=== PATIENT | female | born 1990 | race Caucasian/White ===

== ENCOUNTER 2016-10-31 11:20 | Emergency (ER) | payer OTHER ==
[~2016-10-31] VITALS: Ht 162.6 cm; Wt 102.3 kg
[2016-10-31 11:41] LABS: ADD MIUA? YES; BILIRUBIN NEGATIVE; BLOOD NEGATIVE; COLOR STRAW ((YELLOW)); GLUCOSE (STRIP) NEGATIVE; KETONES NEGATIVE; LEUKOCYTES NEGATIVE; NITRITE NEGATIVE; PROTEIN (STRIP) NEGATIVE; SPECIFIC GRAVITY 1.005 (1.000-1.030); UROBILINOGEN 0.2 MG/DL (0.2-1.0)
[2016-10-31 11:43] LABS: BACTERIA RARE /HPF; EPITHELIAL CELLS 1+ /HPF; MUCUS TRACE /LPF; RED BLOOD CELLS 0-5 /HPF (0-5); UCUL ADDED? NO; WHITE BLOOD CELLS 0-5 /HPF (0-5)
[2016-10-31 12:12] LABS: MCH 29.6 PG (29.0-34.0); MCHC 33.5 G/DL (30.0-36.0); MCV 88.5 FL (83-99); RBC DIS.WIDTH-CV 12.9 % (11.8-14.6); RBC DIS.WIDTH-SD 41.7 % (39-53); RED BLOOD COUNT 4.52 M/uL (3.80-5.20); WHITE BLOOD COUNT 6.5 K/uL (4.1-10.2)
[2016-10-31 12:37] LABS: CHLORIDE 105 mEq/L (99-109); SODIUM 139 mEq/L (136-147)
[2016-10-31 12:40] LABS: GLUCOSE 92 mg/dL (70-99)
[2016-10-31 12:41] LABS: ANION GAP 9 MEQ/L (2-14); TOTAL BILIRUBIN 0.3 mg/dL (0.0-1.0)
[2016-10-31 12:43] LABS: ALKALINE PHOSPHATASE 62 IU/L (3-129)
[2016-10-31 12:44] LABS: UREA NITROGEN (BUN) 8 mg/dL (9-23)
[2016-10-31 12:45] LABS: GFR ESTIMATE (CALCULATED) > 59 mL/min/
[2016-10-31 12:52] LABS: QUANTITATIVE HCG < 4.0 MIU/ML
[2016-10-31 12:58] LABS: MEAN PLAT.VOLUME 11.8 uM^3 (9.5-12.4); PLATELET COUNT 249 K/uL (156-360)
[2016-10-31] MEDS ORDERED: PERCOCET 5/31 TABLET PO (16:39)
[2016-10-31 17:15] VITALS: BP 116/83
== END 2016-10-31 17:17 | disposition home or self-care (01) ==
LOC: EME 11:20
DX: N83.202 Unspecified ovarian cyst, left side (principal); R10.30 Lower abdominal pain, unspecified; R19.4 Change in bowel habit; F17.200 Nicotine dependence, unspecified, uncomplicated
CPT/HCPCS: 76856; 80053; 81003; 84702; 85027; 99281; 99284

== ENCOUNTER 2016-11-26 09:32 | Emergency (ER) | payer OTHER ==
[~2016-11-26] VITALS: Ht 162.6 cm; Wt 60.7 kg
[~2016-11-26 09:32] MED LIST: PERCOCET 5/31 TABLET PO
[2016-11-26] MEDS ORDERED: NAPROSYN500 MG PO (11:05)
[2016-11-26 11:15] VITALS: BP 126/93
== END 2016-11-26 11:16 | disposition home or self-care (01) ==
LOC: EME 09:32
PROC: 3E0234Z Introduction of Serum, Toxoid and Vaccine into Muscle, Percutaneous Approach (ICD-10-PCS; principal; 2016-11-26)
DX: S60.221A Contusion of right hand, initial encounter (principal); S60.511A Abrasion of right hand, initial encounter; W23.0XXA Caught, crushed, jammed, or pinched between moving objects, initial encounter; F17.200 Nicotine dependence, unspecified, uncomplicated
CPT/HCPCS: 73130; 99281; 99284

== ENCOUNTER 2016-12-17 10:25 | Emergency (ER) | payer OTHER ==
[~2016-12-17] VITALS: Ht 162.6 cm; Wt 61.3 kg
[~2016-12-17 10:25] MED LIST changes: +NAPROSYN500 MG PO
[2016-12-17 10:32] VITALS: BP 124/81
[2016-12-17] MEDS ORDERED: ULTRAM50 MG PO (11:14)
== END 2016-12-17 11:43 | disposition home or self-care (01) ==
LOC: EME 10:25
DX: S83.91XA Sprain of unspecified site of right knee, initial encounter (principal); X58.XXXA Exposure to other specified factors, initial encounter; F17.200 Nicotine dependence, unspecified, uncomplicated
CPT/HCPCS: 73564; 99281; 99284

== ENCOUNTER 2017-03-10 13:05 | Emergency (ER) | payer OTHER ==
[~2017-03-10] VITALS: Ht 162.6 cm; Wt 65.5 kg
[~2017-03-10 13:05] MED LIST changes: +ULTRAM50 MG PO
[2017-03-10 14:05] LABS: ADD MIUA? YES; BILIRUBIN NEGATIVE; BLOOD NEGATIVE; COLOR YELLOW ((YELLOW)); GLUCOSE (STRIP) NEGATIVE; KETONES NEGATIVE; LEUKOCYTES NEGATIVE; NITRITE NEGATIVE; PROTEIN (STRIP) NEGATIVE; SPECIFIC GRAVITY 1.006 (1.000-1.030); UROBILINOGEN 0.2 MG/DL (0.2-1.0)
[2017-03-10 14:11] LABS: BACTERIA NONE SEEN /HPF; EPITHELIAL CELLS 2+ /HPF; MUCUS TRACE /LPF; RED BLOOD CELLS 0-5 /HPF (0-5); UCUL ADDED? NO; WHITE BLOOD CELLS 0-5 /HPF (0-5)
[2017-03-10 15:14] LABS: HEMATOCRIT 36.2 % (36.0-46.0); MCH 30.5 PG (29.0-34.0); MCHC 34.5 G/DL (30.0-36.0); MCV 88.3 FL (83-99); RBC DIS.WIDTH-SD 42.3 % (39-53); WHITE BLOOD COUNT 9.1 K/uL (4.1-10.2)
[2017-03-10 15:22] LABS: CHLORIDE 107 mEq/L (99-109)
[2017-03-10 15:23] LABS: POTASSIUM 3.8 mEq/L (3.7-5.4); SODIUM 139 mEq/L (136-147)
[2017-03-10 15:25] LABS: GLUCOSE 103 mg/dL (70-99)
[2017-03-10 15:26] LABS: ANION GAP 8 MEQ/L (2-14)
[2017-03-10 15:27] LABS: TOTAL BILIRUBIN 0.3 mg/dL (0.0-1.0)
[2017-03-10 15:28] LABS: ALKALINE PHOSPHATASE 60 IU/L (3-129); GFR ESTIMATE (CALCULATED) > 59 mL/min/
[2017-03-10 15:30] LABS: UREA NITROGEN (BUN) 6 mg/dL (9-23)
[2017-03-10 15:39] LABS: QUANTITATIVE HCG < 4.0 MIU/ML
[2017-03-10 15:46] LABS: MEAN PLAT.VOLUME 11.3 uM^3 (9.5-12.4); PLAT.SUFFICIENCY ADEQUATE; PLATELET COUNT 268 K/uL (156-360)
[2017-03-10] MEDS ORDERED: INDOCIN50 MG PO (17:32)
[2017-03-10 18:00] VITALS: BP 116/72
== END 2017-03-10 18:01 | disposition home or self-care (01) ==
LOC: EXP 13:05 → EME 13:05 → EXP 18:01
DX: R10.2 Pelvic and perineal pain (principal); R10.30 Lower abdominal pain, unspecified; F17.200 Nicotine dependence, unspecified, uncomplicated
CPT/HCPCS: 76856; 80053; 81003; 84702; 85027; 99281; 99284; J1885; J3010

== ENCOUNTER 2018-02-06 12:11 | Emergency (ER) | payer OTHER ==
[~2018-02-06] VITALS: Ht 162.6 cm; Wt 68.2 kg
[~2018-02-06 12:11] MED LIST changes: +INDOCIN50 MG PO
[2018-02-06 13:07] LABS: HEMATOCRIT 39.2 % (36.0-46.0); HEMOGLOBIN 13.5 G/DL (11.9-15.5); MCHC 34.4 G/DL (30.0-36.0); MCV 90.1 FL (83-99); RBC DIS.WIDTH-CV 12.9 % (11.8-14.6); RBC DIS.WIDTH-SD 42.6 % (39-53); RED BLOOD COUNT 4.35 M/uL (3.80-5.20); WHITE BLOOD COUNT 8.5 K/uL (4.1-10.2)
[2018-02-06 13:18] LABS: ALBUMIN 4.6 g/dL (3.2-4.8); CHLORIDE 107 mEq/L (99-109); POTASSIUM 4.4 mEq/L (3.7-5.4); SODIUM 141 mEq/L (136-147)
[2018-02-06 13:20] LABS: GLUCOSE 98 mg/dL (70-99); TOTAL PROTEIN 7.1 g/dL (6.4-8.3)
[2018-02-06 13:22] LABS: TOTAL BILIRUBIN 0.5 mg/dL (0.0-1.0)
[2018-02-06 13:24] LABS: ALKALINE PHOSPHATASE 72 IU/L (3-129); CREATININE 0.8 mg/dL (0.6-1.3); GFR ESTIMATE (CALCULATED) > 59 mL/min/
[2018-02-06 13:25] LABS: UREA NITROGEN (BUN) 8 mg/dL (9-23)
[2018-02-06 13:26] LABS: AST (GOT) 13 IU/L (2-34)
[2018-02-06 13:27] LABS: ALT (GPT) 10 IU/L (3-49); LIPASE 46 U/L (1.0-51.0)
[2018-02-06 13:35] LABS: QUANTITATIVE HCG < 4.0 MIU/ML
[2018-02-06 13:58] LABS: PLAT.SUFFICIENCY ADEQUATE; PLATELET COUNT 252 K/uL (156-360)
[2018-02-06 14:26] LABS: APPEARANCE CLEAR ((CLEAR)); BILIRUBIN NEGATIVE; BLOOD SMALL; COLOR STRAW ((YELLOW)); GLUCOSE (STRIP) NEGATIVE; KETONES NEGATIVE; LEUKOCYTES NEGATIVE; NITRITE NEGATIVE; PROTEIN (STRIP) NEGATIVE; SPECIFIC GRAVITY 1.006 (1.000-1.030); UROBILINOGEN 0.2 MG/DL (0.2-1.0)
[2018-02-06 14:32] LABS: BACTERIA RARE /HPF; EPITHELIAL CELLS RARE /HPF; MUCUS NONE SEEN /LPF; RED BLOOD CELLS 0-5 /HPF (0-5); UCUL ADDED? NO; WHITE BLOOD CELLS 0-5 /HPF (0-5)
[2018-02-06] MEDS ORDERED: REGLAN10 MG PO (16:46)
[2018-02-06 16:56] VITALS: BP 93/61
== END 2018-02-06 16:58 | disposition home or self-care (01) ==
LOC: EME 12:11
DX: R10.31 Right lower quadrant pain (principal); R10.32 Left lower quadrant pain; F17.200 Nicotine dependence, unspecified, uncomplicated
CPT/HCPCS: 74177; 80053; 81003; 83690; 84702; 85027; 99281; 99285; J1885; J2405; J7120